=== PATIENT | male | born 1975 | race Caucasian/White ===

== ENCOUNTER 2017-06-09 21:11 | Emergency (ER) | payer MEDICAID, OTHER ==
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
[2017-06-09] MEDS ORDERED: NS IVPB STA (21:53)
[2017-06-09] MEDS ORDERED: CEFAZOLIN IVPB STA (21:53)
[2017-06-09] MEDS ORDERED: Sterile Water 10 ML IV ONE (22:09)
[2017-06-09] MEDS ORDERED: Oxycodone/Acetaminophen 5/325 mg Tab PO STA (22:16)
[2017-06-09] MEDS ORDERED: Oxycodone/Acetaminophen 5/325 mg Tab ONE (22:18)
[2017-06-09] MEDS ORDERED: Lidocaine 2% w Epi 1:100,000 Inj IJ ONE ×2 (22:32→22:45)
[2017-06-10 00:05] VITALS: BP 125/80; PULSE 75; RESP 16; TEMP 97.9; O2SAT 100
--- NOTE | 2017-06-10 12:14 | RAD ---
PROCEDURE: Left Hand Radiographs. HISTORY: trauma COMPARISON: None. FINDINGS: BONES: A comminuted nondisplaced fracture of the tuft of the distal phalanx of left thumb identified partially obscured by overlying gauze. No dislocation or subluxation. The remainder of the left hand appears unremarkable as imaged including soft tissues. JOINTS: Normal. No osteoarthritic changes. SOFT TISSUES: Normal. OTHER FINDINGS: None. IMPRESSION: Comminuted tuft fracture distal phalanx left thumb as discussed above.
== END 2017-06-10 00:17 | disposition home or self-care (01) ==
LOC: H.ER 21:11
DX: S62.525B Nondisplaced fracture of distal phalanx of left thumb, initial encounter for open fracture (principal); Z23 Encounter for immunization; S61.112A Laceration without foreign body of left thumb with damage to nail, initial encounter; W23.0XXA Caught, crushed, jammed, or pinched between moving objects, initial encounter
CPT/HCPCS: 13121; 73130; 90471; 90715; 96374; 99283; J0690